=== PATIENT | female | born 1975 | race Caucasian/White ===

== ENCOUNTER 2017-03-04 20:02 | Emergency (ER) | payer BC ==
[~2017-03-04] VITALS: Ht 170.2 cm; Wt 58.3 kg
[~2017-03-04 20:02] MED LIST: OXYC1SOL5 PO; PREN0.01 PO
[2017-03-04 20:07] VITALS: BP 131/74; PULSE 86; RESP 18; TEMP 98.7; O2SAT 100
[2017-03-04] MEDS ORDERED: KETOROLAC TROMETHAMINE 30 MG/ML (IVP) VIAL IV PUSH ONE (20:30)
[2017-03-04] MEDS ORDERED: ONDANSETRON HCL 4 MG/2 ML VIAL IV PUSH ONE (20:30)
[2017-03-04] MEDS ORDERED: SODIUM CHLOR 0.9% 1000 ML INJ 1,000 ML IV ONE (20:30)
--- NOTE | 2017-03-04 20:38 | PD ---
HPI Chief Complaint: GI Complaint Time Seen by Provider: 20:14 Travel History International Travel<30 days: No Contact w/Intl Traveler<30days: No Traveled to known affect area: No History of Present Illness HPI This 41-year-old female says she been having diarrhea for about 2 days. During that time she's developed some left lower quadrant pain which he says is quite severe. She says it feels like somebody is stabbing her there. 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 She has not been on any antibiotics recently. She has had a tubal ligation. She is also had a left oophorectomy and salpingectomy. She has a past history of endometriosis. [facility] Past Medical History Influenza Vaccination: Yes ?: Not : 1 Para: 3 Miscarriage: 2 Ovarian Cysts: Yes Tubal Ligation: Yes Past Surgical History Section: Yes (x2) Gynecologic Surgery: Yes (LFT FALOPIAN TUBE AND OVARY REMOVED) Other Surgery: Yes (ENDOMETRIOSIS WITH INTESTINAL SCRAPING) Social History Alcohol Use: No Tobacco Use: No Substance Use: No Allergies-Medications (Allergen,Severity, Reaction): Coded Allergies: No Known Allergies (Unverified , 03/04/17) Reported Meds & Prescriptions Reported Meds & Active Scripts Active Review of Systems General / Constitutional: No: Fever, Chills Eyes: No: Diploplia, Blurred Vision HENT: No: Vertigo Cardiovascular: No: Chest Pain or Discomfort, Palpitations Gastrointestinal: Positive: Diarrhea, Abdominal Pain, No: Nausea, Vomiting Genitourinary: No: Frequency, Dysuria Musculoskeletal: No: Myalgias, Arthralgias Skin: No Rash Physical Exam Narrative GENERAL: Well-developed female SKIN: Focused skin assessment warm/dry. HEAD: Atraumatic. Normocephalic. EYES: Pupils equal and round. No scleral icterus. No injection or drainage. ENT: No nasal bleeding or discharge. Mucous membranes pink and moist. NECK: Trachea midline. No JVD. CARDIOVASCULAR: Regular rate and rhythm. No murmur appreciated. RESPIRATORY: No accessory muscle use. Clear to auscultation. Breath sounds equal bilaterally. GASTROINTESTINAL: Abdomen soft, is some left lower quadrant tenderness, nondistended. Hepatic and splenic margins not palpable. MUSCULOSKELETAL: No obvious deformities. No clubbing. No cyanosis. No edema. NEUROLOGICAL: Awake and alert. No obvious cranial nerve deficits. Motor grossly within normal limits. Normal speech. PSYCHIATRIC: Appropriate mood and affect; insight and judgment normal. Data Data Last Documented VS Vital Signs Date Time Temp Pulse Resp B/P Pulse Ox O2 Delivery O2 Flow Rate FiO2 03/04/17 21:45 72 18 136/74 100 Room Air 03/04/17 20:07 98.7 Orders Complete Blood Count With Diff (03/04/17 20:23) Comprehensive Metabolic Panel (03/04/17 20:23) Urinalysis - C+S If Indicated (03/04/17 20:23) Enteric Path (Stool) (03/04/17 20:23) C Diff Toxin Pcr (03/04/17 20:23) Ct Abd/Pel W Iv Contrast(Rout) (03/04/17 20:23) Sodium Chlor 0.9% 1000 Ml Inj (Ns 1000 M (03/04/17 20:30) Ondansetron Inj (Zofran Inj) (03/04/17 20:30) Ketorolac Inj (Toradol Inj) (03/04/17 20:30) Iohexol 350 Inj (Omnipaque 350 Inj) (03/04/17 22:07) Labs Laboratory Tests Test 03/04/17 03/04/17 20:41 21:00 White Blood Count 8.1 TH/MM3 Red Blood Count 4.25 MIL/MM3 Hemoglobin 8.9 GM/DL Hematocrit 29.7 % Mean Corpuscular Volume 69.8 FL Mean Corpuscular Hemoglobin 20.9 PG Mean Corpuscular Hemoglobin 30.0 % Concent Red Cell Distribution Width 17.0 % Platelet Count 208 TH/MM3 Mean Platelet Volume 8.6 FL Neutrophils (%) (Auto) 54.3 % Lymphocytes (%) (Auto) 30.2 % Monocytes (%) (Auto) 11.8 % Eosinophils (%) (Auto) 3.4 % Basophils (%) (Auto) 0.3 % Neutrophils # (Auto) 4.3 TH/MM3 Lymphocytes # (Auto) 2.5 TH/MM3 Monocytes # (Auto) 1.0 TH/MM3 Eosinophils # (Auto) 0.3 TH/MM3 Basophils # (Auto) 0.0 TH/MM3 CBC Comment AUTO DIFF Differential Comment AUTO DIFF CONFIRMED Ovalocytes 1+ Sodium Level 140 MEQ/L Potassium Level 3.4 MEQ/L Chloride Level 107 MEQ/L Carbon Dioxide Level 25.6 MEQ/L Anion Gap 7 MEQ/L Blood Urea Nitrogen 17 MG/DL Creatinine 0.80 MG/DL Estimat Glomerular Filtration 79 ML/MIN Rate Random Glucose 110 MG/DL Calcium Level 8.5 MG/DL Total Bilirubin 0.2 MG/DL Aspartate Amino Transf 23 U/L (AST/SGOT) Alanine Aminotransferase 33 U/L (ALT/SGPT) Alkaline Phosphatase 40 U/L Total Protein 7.1 GM/DL Albumin 3.9 GM/DL Urine Color YELLOW Urine Turbidity CLEAR Urine pH 6.0 Urine Specific [place] 1.026 Urine Protein NEG mg/dL Urine Glucose (UA) NEG mg/dL Urine Ketones TRACE mg/dL Urine Occult Blood NEG Urine Nitrite NEG Urine Bilirubin NEG Urine Leukocyte Esterase NEG Urine RBC 0-3 /hpf Urine WBC 0-2 /hpf Urine Squamous Epithelial 0-5 /hpf Cells Urine Amorphous Sediment MOD Urine Mucus FEW /lpf Microscopic Urinalysis Comment CULT NOT INDICATED MDM Medical Decision Making Medical Screen Exam Complete: Yes Emergency Medical Condition: Yes Medical Record Reviewed: Yes Differential Diagnosis Differential includes colitis, diverticulitis, ovarian cysts. Narrative Course Work shows anemia which is most likely iron deficiency. A CT scan was obtained which shows bilateral cysts which are 2.7 cm on the left 2.8 on the right. Bowel pattern apparently unremarkable. Diagnosis Primary Impression: Adnexal cyst Additional Impression: Anemia Qualified Code: D50.9 - Iron deficiency anemia, unspecified iron deficiency anemia type Scripts Ferrous Sulfate (Iron)325 Mg Scd567 Mg PO BIDPC #30 TAB Ref 0 Take after a meal. Prov:Troy Simon MD 03/04/17 Disposition: 01 DISCHARGE HOME Condition: Stable Troy Simon MD March 04, 2017 20:38
[2017-03-04 20:54] LABS: AUTOMATED NEUTROPHIL # 4.3 TH/MM3 (1.8-7.7); BASOPHIL % 0.3 % (0.0-2.0); EOSINOPHIL # 0.3 TH/MM3 (0-0.4); EOSINOPHIL % 3.4 % (0.0-4.0); HEMATOCRIT 29.7 % (35.0-46.0); LYMPH % 30.2 % (9.0-44.0); LYMPHOCYTE # 2.5 TH/MM3 (1.0-4.8); MEAN CELL VOLUME 69.8 FL (80.0-100.0); MEAN CORPUSCULAR HEMOGLOBIN 20.9 PG (27.0-34.0); MONO % 11.8 % (0.0-8.0); NEUT % 54.3 % (16.0-70.0); PLATELET COUNT 208 TH/MM3 (150-450); RED BLOOD COUNT 4.25 MIL/MM3 (4.00-5.30); WHITE BLOOD COUNT 8.1 TH/MM3 (4.0-11.0)
[2017-03-04 21:01] LABS: CHLORIDE 107 MEQ/L (98-107); POTASSIUM 3.4 MEQ/L (3.5-5.1); SODIUM (NA) 140 MEQ/L (136-145)
[2017-03-04 21:05] LABS: ANION GAP 7 MEQ/L (5-15); BICARBONATE 25.6 MEQ/L (21.0-32.0); BLOOD UREA NITROGEN 17 MG/DL (7-18)
[2017-03-04 21:08] LABS: ALT (GPT) 33 U/L (10-53); AST (GOT) 23 U/L (15-37); GLOMERULAR FILTRATION RATE 79 ML/MIN (>89)
[2017-03-04 21:10] LABS: TOTAL BILIRUBIN ADULT 0.2 MG/DL (0.2-1.0)
[2017-03-04 21:11] LABS: ALKALINE PHOSPHATASE 40 U/L (45-117)
[2017-03-04 21:19] LABS: BLOOD, URINE NEG (NEG); GLUCOSE,URINE NEG (NEG); KETONE, URINE TRACE mg/dL (NEG); NITRITE,URINE NEG (NEG)
[2017-03-04 21:23] LABS: HEMO FLAGS AUTO DIFF
[2017-03-04 21:38] LABS: URINE COLOR YELLOW (YELLW/STRAW)
[2017-03-04 21:39] LABS: MUCUS URINE FEW /lpf (OCC); RBC, URINE 0-3 /hpf (0-3); SQUAMOUS EPITHELIAL CELL URINE 0-5 /hpf (0-5); WBC, URINE 0-2 /hpf (0-5)
[2017-03-04 21:40] LABS: COMMENT (UR) CULT NOT INDICATED; CULTURE IF INDICATED CULT NOT INDICATED
[2017-03-04 21:45] VITALS: BP 136/74; PULSE 72; RESP 18; O2SAT 100
[2017-03-04 22:00] VITALS: RESP 18
[2017-03-04 22:04] LABS: OVALOCYTES 1+ (NORMAL)
[2017-03-04 22:05] LABS: SCAN/DIFF AUTO DIFF CONFIRMED
[2017-03-04] MEDS ORDERED: IOHEXOL 350 MG/ML 10 ML VIAL (for RAD DIAG) IV ONE (22:07)
--- NOTE | 2017-03-04 22:26 | RADHPO ---
EXAM DATE/TIME: 03/04/2017 21:28 [place] COMPARISON: No previous studies available for comparison. INDICATIONS : Left lower quadrant pain. Diarrhea. IV CONTRAST: 100 cc Omnipaque 350 (iohexol) IV ORAL CONTRAST: No oral contrast ingested. RADIATION DOSE: 5.63 CTDIvol (mGy) MEDICAL HISTORY : None SURGICAL HISTORY : Tubal ligation. section.Left oophorectomy ENCOUNTER: Initial ACUITY: 1 day PAIN SCALE: 7/10 LOCATION: Left lower quadrant TECHNIQUE: Volumetric scanning of the abdomen and pelvis was performed. Using automated exposure control and ad justment of the mA and/or kV according to patient size, radiation dose was kept as low as reasonably achievable to obtain optimal diagnostic quality images. FINDINGS: Lung bases are clear. No acute findings in the kidneys, spleen, adrenals, pancreas. Small free fluid in the pelvis. There is a 2.7 cm left adnexal cyst and a 2.8 cm right adnexal cyst. Fluid attenuation in the endometrial cavity as well. No acute bony abnormalities. CONCLUSION: 1. Bilateral adnexal cysts measuring up to 2.7 cm on the left and 2.8 cm on the right with a small am ount of free fluid. Obi Kerr MD on March 04, 2017 at 22:20 Board Certified Radiologist. This report was verified electronically.
[2017-03-04] MEDS ORDERED: FERR1TAB36 PO (22:43)
[2017-03-04 23:06] VITALS: BP 117/68
== END 2017-03-04 23:08 | disposition home or self-care (01) ==
LOC: PHED 20:02
DX: N83.202 Unspecified ovarian cyst, left side (principal); N83.201 Unspecified ovarian cyst, right side; D64.9 Anemia, unspecified; R19.7 Diarrhea, unspecified
CPT/HCPCS: 74177; 80053; 81001; 85025; 96361; 96374; 96375; 99284; J1885; J2405; J7030; Q9967